=== PATIENT | female | born 1990 | race Caucasian/White ===

== ENCOUNTER 2016-07-03 05:21 | Emergency (ER) | payer OTHER ==
[~2016-07-03 05:21] MED LIST: ALBUTEROL0.09 MG/A1 INH; BACTRIM DS 8001 TAB PO; CIPROFLOXACIN250 M2 PO; DICLOFENAC SOD75 MG; FLU VACCINE 0.0.5 ML IM; FLUCONAZOLE150 MG; HYDROCHLOROTH12.5 M1 PO; IBUPROFEN800 MG PO; LEVSIN-SL0.125 MG SL; LEVSIN0.125 MG PO; MOTRIN800 MG PO; PEPCID20 M1 PO; PREDNISONE 20MG20 MG PO; REGLAN10 M1 PO; VITAFOL PO; ZOFRAN ODT4 MG PO; ZOFRAN4 M1 PO; ZOFRAN4 M1 SL; ZOFRAN4 MG PO
--- NOTE | 2016-07-03 05:50 | ED GI/GU/ABDOMINAL COMPLAINT ---
History of Present Illness General Chief Complaint: Abdominal Pain/Flank Pain Stated Complaint: "IM ABOUT 7WKS AND HAVE PAIN" Source: patient Exam Limitations: no limitations Vital Signs & Intake/Output Vital Signs & Intake/Output Vital Signs Date Time Temp Pulse Resp B/P Pulse O2 O2 Flow FiO2 Ox Delivery Rate 07/03 0933 98.3 106 20 131/63 99 Room Air 07/03 0731 98.1 94 18 110/57 99 Room Air 07/03 0539 97.2 109 18 143/72 98 Room Air Allergies Coded Allergies: azithromycin (Mild, FACE SWELLING 06/27/15) Penicillins (HIVES 06/17/15) Reconcile Medications Famotidine (Pepcid) 20 MG TABLET 1 TAB PO BID gastritis Hydrochlorothiazide 12.5 MG TAB 1 TAB PO DAILY HYPERTENSION Hyoscyamine Sulfate (Levsin-Sl) 0.125 MG TAB.SUBL 1-2 TAB SL Q4P PRN abdominal cramps Metoclopramide HCl (Reglan) 10 MG TABLET 1 TAB PO 4 TIMES/DAY nausea 30 minutes before meals and bedtime Pnv#26/Iron Poly/FA/Dha (Vitafol-One Capsule) 29 MG IRON-1 MG-200 MG CAPSULE 1 CAP PO DAILY (Reported) Triage Note: PER PT ?7 WEEKS ,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 NO CONSTIPATION, SL NAUSEA. Triage Nurses Notes Reviewed? yes ? y Is pt currently ? No Onset: Gradual Duration: hour(s): Timing: recent history Quality/Severity: cramping Location: suprapubic Radiation: no radiation Activities at Onset: none Prior Abdominal Problems: none Sexually Active: Yes Last Time You Were Sexual: less than 2 months ago Sexual Orientation: Heterosexual Associated Symptoms: lower abd cramps and slight vaginal bloody spotting. HPI: 25 yo woman presents with crampy lower abdominal pain for the past 1-2 days. She states that she recently had a positive serum test. She has not had ultrasound yet. Her last menstrual period was May 17. She states that she is concerned about a miscarriage. (WILFREDO WILDER,TABBY Reddy) Past History Travel History Traveled to [place] past 21 day No Medical History Any Pertinent Medical History? see below for history Neurological: NONE EENT: NONE Cardiovascular: NONE Respiratory: NONE Gastrointestinal: NONE Hepatic: NONE Renal: NONE Musculoskeletal: NONE Psychiatric: anxiety, ? 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 No (WILFREDO WILDER,TABBY Reddy) Review of Systems Review of Systems Constitutional: Reports: no symptoms. EENTM: Reports: no symptoms. Respiratory: Reports: no symptoms. Cardiovascular: Reports: no symptoms. GI: Reports: no symptoms. Genitourinary: Reports: no symptoms. Musculoskeletal: Reports: no symptoms. Skin: Reports: no symptoms. Neurological/Psychological: Reports: no symptoms. Hematologic/Endocrine: Reports: no symptoms. Immunologic/Allergic: Reports: no symptoms. All Other Systems: Reviewed and Negative (WILFREDO WILDER,TABBY Reddy) Physical Exam Physical Exam General Appearance: well developed/nourished, mild distress Head: atraumatic, normal appearance Eyes: Bilateral: normal appearance. Ears, Nose, Throat, Mouth: hearing grossly normal Neck: normal inspection, supple, full range of motion, normal alignment Respiratory: normal breath sounds, chest non-tender, no respiratory distress, quiet respiration, lungs clear Cardiovascular: regular rate/rhythm Gastrointestinal: normal bowel sounds, soft, non-tender, SUBJECTIVE TENDERNESS IN SUPRAPUBIC REGION, no rlq tenderness to palpation. Pelvic: normal external exam, normal speculum exam, cervix closed. no bleeding. Back: normal inspection, normal range of motion Extremities: normal range of motion, evidence of injury, pelvis stable Neurologic/Psych: no motor/sensory deficits, awake, alert, oriented x 3 Skin: intact, normal color, warm/dry Core Measures ACS in differential dx? No Severe Sepsis Present: No Septic Shock Present: No (WILFREDO WILDER,TABBY Reddy) Progress Differential Diagnosis: UTI/pyelo, ECTOPIC VS OTHER. Plan of Care: Orders Procedure Date/time Status TRICHOMONAS 07/03 600 Complete POTASSIUM HYDROXIDE (NANCY) 07/03 600 Complete GENITAL CULTURE 07/03 600 Active CHLAMYDIA-GC DNA PROBE 07/03 600 Active LIPASE 07/03 550 Complete HEPATIC FUNCTION PANEL 07/03 550 Complete HUMAN BETA HCG TITRE 07/03 550 Complete CBC WITHOUT DIFFERENTIAL 07/03 550 Complete BASIC METABOLIC PANEL 07/03 550 Complete AMYLASE 07/03 550 Complete TYPE & SCREEN (NOT X-MATCH) 07/03 550 Complete URINALYSIS 07/03 545 Complete Laboratory Tests 07/03/16 0615: Anion Gap 9, Estimated GFR > 60, BUN/Creatinine Ratio 17.1, Glucose 100 H, Calcium 9.2, Total Bilirubin 0.6, Direct Bilirubin 0.3, AST 45 H, ALT 62 H, Alkaline Phosphatase 71, Total Protein 6.6, Albumin 3.7, Amylase 42, Lipase 113, Beta HCG, Quant 2044.6, CBC w Diff NO MAN DIFF REQ, RBC 4.26, MCV 91.8, MCH 30.1 , RDW 11.8, MPV 8.3, Gran % 39.6 L, Lymphocytes % 51.6 H, Monocytes % 7.4, Eosinophils % 0.9, Basophils % 0.5, Absolute Granulocytes 2.8, Absolute Lymphocytes 3.6 H, Absolute Monocytes 0.5, Absolute Eosinophils 0.1, Absolute Basophils 0, PUBS MCHC 32.8 L 07/03/16 0548: Urine Color STRAW, Urine Clarity CLEAR, Urine pH 6.5, Ur Specific [place] <= 1.005, Urine Protein NEG, Urine Ketones NEG, Urine Nitrite NEG, Urine Bilirubin NEG, Urine Urobilinogen 0.2, Ur Leukocyte Esterase NEG, Ur Microscopic EXAM NOT REQUIRED, Urine Hemoglobin NEG, Urine Glucose NEG Microbiology 07/04 635 GENITAL: Trichomonas Preparation - COMP 07/04 635 GENITAL: Genital Culture - RECD 07/03 625 GENITAL: GC DNA Probe - RECD 07/03 625 GENITAL: Chlamydia DNA Probe (ADRY) - RECD 07/03 600 GENITAL: NANCY Preparation - COMP 07/03/2016 7:42:41 AM Patient signed out to be done by Dr. Sandoval pending ultrasound to evaluate for position. (JO WILDER,BRIEN) Diagnostic Imaging: Viewed by Me: Ultrasound. Discussed w/RAD: Ultrasound. Initial ED EKG: normal axis, normal intervals, normal p-waves, normal QRS complex, normal sinus rhythm Hand-Off Endorsed To: BRIEN OSORIO MD Endorsed Time: 0700 Pending: labs, ultrasound (WILFREDO WILDER,TABBY Reddy) Radiology Impression: PATIENT: SHEN QUINTERO PRESENT AGE: 25 PATIENT ACCOUNT NO: [id number] : 90 LOCATION: [facility] ORDERING PHYSICIAN: TABBY SANDOVAL MD SERVICE DATE: 07/03/16 EXAM TYPE: US - US TRANSVAG EXAMINATION: US TRANSVAGINAL CLINICAL INFORMATION: 7 weeks . Spotting. COMPARISON: Pelvic ultrasound 07/21/2015. TECHNIQUE: Real-time ultrasound was performed transvaginally. FINDINGS: The uterus is anteverted in position. Within the endometrial cavity is a well formed gestation sac measuring 0.55 cm in diameter corresponding to 5 weeks 1 day +/- 5 days. A yolk sac is suspected. pole and cardiac activity cannot be visualized at this age. The right ovary measures 1.9 x 2.3 x 2.2 cm, and the left ovary measures 2.8 x 2.6 x 2.9 cm. A small 2.0 cm corpus luteal cyst is seen in the left ovary. Normal arterial and venous waveforms are seen in the bilateral ovaries. Other significant findings: None. No evidence of free fluid. IMPRESSION: Single live intrauterine estimated to be 5 weeks 1 day +/- 5 days menstrual age. Estimated date of delivery is 03/04/2017. Based on the dating of the , it is too early to evaluate for presence of pole or heartbeat. No abnormal fluid is seen in endometrial cavity or cervix. The adnexa are unremarkable. DICTATED BY: NASH ELMORE MD DATE/TIME DICTATED:07/03/16907 CUSTOMER ORDERS CLERK:ALISIA DATE/TIME TRANSCRIBED:907 CONFIDENTIAL, DO NOT COPY WITHOUT APPROPRIATE AUTHORIZATION. < Electronically signed in Other Vendor System> SIGNED BY: NASH ELMORE MD 07/03/16926 (BRIEN OSORIO MD) Departure Departure Condition: Stable Referrals: BISI BRENNER MD (PCP/Family) (WILFREDO WILDER,TABBY Reddy) Departure Time of Disposition: 942 Disposition: HOME OR SELF CARE Clinical Impression Primary Impression: Secondary Impressions: Threatened Additional Instructions: FOLLOW UP WITH YOUR OBGYN DOCTORS. TAKE VITAMINS. NO TAMPONS OR VAGINAL INTERCOURSE UNTIL YOU ARE CLEARED TO DO SO BY YOUR DOCTOR. Departure Forms: Customer Survey General Discharge Information (BRIEN OSORIO MD)
[2016-07-03] MEDS ORDERED: VITAFOL-ONE CA1 EACH PO (06:15)
[2016-07-03 06:27] LABS: ABSOLUTE BASOPHIL COUNT 0 /CUMM (0.0-0.2); ABSOLUTE EOSINOPHIL COUNT 0.1 /CUMM (0.0-0.7); ABSOLUTE GRANULOCYTE CT 2.8 /CUMM (1.4-6.5); ABSOLUTE LYMPH COUNT 3.6 /CUMM (1.2-3.4); ABSOLUTE MONOCYTE COUNT 0.5 /CUMM (0.10-0.60); BASOPHIL % 0.5 % (0.0-2.0); EOSINOPHIL % 0.9 % (0-5); GRANULOCYTE % 39.6 % (42.2-75.2); HEMATOCRIT 39.1 % (37-47); MEAN CORPUSCULAR HGB 30.1 PG (27.0-31.0); MEAN CORPUSCULAR HGB CONC 32.8 G/DL (33.0-37.0); MEAN CORPUSCULAR VOLUME 91.8 FL (81.0-99.0); MEAN PLATELET VOLUME 8.3 FL (7.4-10.4); PLATELET COUNT 183 /CUMM (130-400); RBC DISTRIBUTION WIDTH 11.8 % (11.5-14.5); RED BLOOD CELL CT 4.26 /CUMM (4.20-5.40)
--- NOTE | 2016-07-03 09:27 | ULTRASOUND REPORT ---
EXAMINATION: US TRANSVAGINAL CLINICAL INFORMATION: 7 weeks . Spotting. COMPARISON: Pelvic ultrasound 07/21/2015. TECHNIQUE: Real-time ultrasound was performed transvaginally. FINDINGS: The uterus is anteverted in position. Within the endometrial cavity is a well formed gestation sac measuring 0.55 cm in diameter corresponding to 5 weeks 1 day +/- 5 days. A yolk sac is suspected. pole and cardiac activity cannot be visualized at this age. The right ovary measures 1.9 x 2.3 x 2.2 cm, and the left ovary measures 2.8 x 2.6 x 2.9 cm. A small 2.0 cm corpus luteal cyst is seen in the left ovary. Normal arterial and venous waveforms are seen in the bilateral ovaries. Other significant findings: None. No evidence of free fluid. IMPRESSION: Single live intrauterine estimated to be 5 weeks 1 day +/- 5 days menstrual age. Estimated date of delivery is 03/04/2017. Based on the dating of the , it is too early to evaluate for presence of pole or heartbeat. No abnormal fluid is seen in endometrial cavity or cervix. The adnexa are unremarkable.
[2016-07-03 09:33] VITALS: BP 131/63
== END 2016-07-03 09:54 ==
LOC: ERH 05:21
PROVIDERS: Pediatrics
DX: O20.0 Threatened abortion (principal)
CPT/HCPCS: 87070; 76817; 81003; 81025; 87491; 87591

== ENCOUNTER 2016-08-15 07:43 | Emergency (ER) | payer OTHER ==
[~2016-08-15] VITALS: Ht 162.6 cm; Wt 93.0 kg
[~2016-08-15 07:43] MED LIST changes: +VITAFOL-ONE CA1 EACH PO
--- NOTE | 2016-08-15 08:47 | ED GENERAL ADULT ---
See Addendum History of Present Illness General Chief Complaint: General Adult Stated Complaint: 11WKS PREG; C/O DIZZINESS Source: patient Exam Limitations: no limitations Vital Signs & Intake/Output Vital Signs & Intake/Output Vital Signs Date Time Temp Pulse Resp B/P B/P Pulse O2 O2 Flow FiO2 Mean Ox Delivery Rate 08/15 1136 97.3 81 18 108/57 99 Room Air 08/15 0959 Room Air 08/15 0747 97.5 85 20 119/82 97 Room Air Allergies Coded Allergies: azithromycin (Mild, FACE SWELLING 06/27/15) Penicillins (HIVES 06/17/15) Reconcile Medications Doxylamine/Pyridoxine HCl (Diclegis Dr 10-10 MG Tablet) 10 MG-10 MG TABLET.DR 2 TAB PO QPM nausea Famotidine (Pepcid) 20 MG TABLET 1 TAB PO BID gastritis Triage Note: PT STATES SHE IS 11 WEEKS AND IS VERY DIZZY, CAN'T KEEP ANYTHING DOWN INCLUDING WATER. . LAST OB APPT 1 WEEK AGO, EVERYTHING OK WITH . PT DENIES VAGINAL BLEEDING Triage Nurses Notes Reviewed? yes Onset: Abrupt Duration: day(s): Timing: recent history : Yes Patient currently breastfeeds: No HPI: 08/15/16 9 AM This is a 25-year-old female who presents to the emergency department complaining of dizziness, nausea, and epigastric abdominal discomfort. According to the patient she was in her usual state of health until the past 72 hours when she developed the above symptom complex. There is no vaginal bleeding. No fever, + vomiting. She is a 3 para 2. Her last menstrual period was May 17. She says she is unable to tolerate water. She says had multiple episodes of vomiting. She has a past medical history of asthma. She is on no medications. Past surgical history significant for tonsillectomy. Past History Travel History Traveled to [place] past 21 day No Medical History Any Pertinent Medical History? see below for history Neurological: NONE EENT: NONE Cardiovascular: NONE Respiratory: NONE Gastrointestinal: NONE Hepatic: NONE Renal: NONE Musculoskeletal: NONE Psychiatric: anxiety, ? 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 No Review of Systems Review of Systems Constitutional: Denies: fever. EENTM: Denies: visual changes. Respiratory: Denies: cough, short of breath. Cardiovascular: Denies: chest pain. GI: Reports: abdominal pain, nausea, vomiting. Denies: diarrhea. Genitourinary: Reports: no symptoms. Musculoskeletal: Reports: no symptoms. Skin: Denies: rash. Neurological/Psychological: Denies: headache. Hematologic/Endocrine: Reports: no symptoms. Physical Exam Physical Exam General Appearance: well developed/nourished, alert, awake, anxious Head: atraumatic, normal appearance Eyes: Bilateral: normal appearance, PERRL, EOMI (no nystagmus). Ears, Nose, Throat: normal pharynx, normal ENT inspection Neck: normal inspection, supple Respiratory: normal breath sounds, chest non-tender, no respiratory distress Cardiovascular: regular rate/rhythm Peripheral Pulses: 4+ radial (R), 4+ radial (L) Gastrointestinal: soft, non-tender, uterus at pelvic brim Back: normal range of motion Extremities: normal range of motion Neurologic/Psych: no motor/sensory deficits, awake, alert, oriented x 3 Skin: intact, normal color, warm/dry Core Measures ACS in differential dx? No CVA/TIA Diagnosis: No Severe Sepsis Present: No Septic Shock Present: No Progress Differential Diagnoses I considered the following diagnoses in my evaluation of the patient: [ Dehydration, starvation ketosis, gastroenteritis, cholecystitis, UTI, threatened ] Plan of Care: Orders Procedure Date/time Status CULTURE,URINE 08/15 857 Active URINALYSIS 08/15 08 Complete COMPREHENSIVE METABOLIC PANEL 08/15 08 Complete CBC WITHOUT DIFFERENTIAL 08/15 857 Complete ACETONE 08/15 08 Complete Laboratory Tests 08/15/16 0909: Anion Gap 11, Estimated GFR > 60, BUN/Creatinine Ratio 16.7, Glucose 81, Calcium 8.9, Total Bilirubin 0.7, AST 19, ALT 36, Alkaline Phosphatase 47, Total Protein 6.6, Albumin 3.6, Globulin 3.0, Albumin/Globulin Ratio 1.2, CBC w Diff NO MAN DIFF REQ, RBC 3.94 L, MCV 88.9, MCH 30.9, RDW 11.9, MPV 8.3, Gran % 65.6, Lymphocytes % 29.2, Monocytes % 4.7, Eosinophils % 0.2, Basophils % 0.3, Absolute Granulocytes 3.8, Absolute Lymphocytes 1.7, Absolute Monocytes 0.3, Absolute Eosinophils 0, Absolute Basophils 0, PUBS MCHC 34.7, Acetone Level NEGATIVE, Urinalysis MOD H, Urine Color YEL, Urine Clarity CLEAR, Urine pH 6.0, Ur Specific [place] >= 1.030, Urine Protein TRACE H, Urine Ketones TRACE H, Urine Nitrite NEG, Urine Bilirubin NEG@ICTO, Urine Urobilinogen 0.2, Ur Leukocyte Esterase NEG, Ur Microscopic SEDIMENT EXAMINED, Urine RBC RARE, Ur Epithelial Cells FEW, Urine Bacteria FEW H, Urine Mucus FEW, Urine Hemoglobin NEG, Urine Glucose NEG Microbiology 08/15 908 URINE ROUT: Urine Culture - RECD Initial ED EKG: none Departure Departure Disposition: STILL A PATIENT Condition: Stable Clinical Impression Primary Impression: Dizziness Referrals: ZOILA PACHECO MD (PCP/Family) Departure Forms: Customer Survey General Discharge Information Prescriptions: Current Visit Scripts Doxylamine/Pyridoxine HCl (Diclegis Dr 10-10 MG Tablet) 2 TAB PO QPM #48 TAB Comments 08/15/16 11:20 AM Labs unremarkable. Patient is comfortable and her symptoms improved with Phenergan and IV fluids. 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 Take Diclegis as needed. PATIENT: SHEN QUINTERO PRESENT AGE: 25 PATIENT ACCOUNT NO: [id number] : 90 LOCATION: [facility] ORDERING PHYSICIAN: YOBANY DREW DO SERVICE DATE: 08/15/16 EXAM TYPE: US - US- VIABILITY EXAMINATION: Ultrasound of , less than 14 weeks. INDICATION: 25 year-old the female, known to be , presented with pelvic pain.. TECHNIQUE: Real-time ultrasound of was performed transabdominally, using grayscale appearance and color Doppler flow. COMPARISON: Pelvic ultrasound done on 07/03/2016. FINDINGS: Multiple sonographic images of the pelvis demonstrates a single live intrauterine . heart rate of 165 beats per minute is detected. The cervix is closed, measures 4.40 cm. There is normal amniotic fluid volume. A pole and the gestational sac is visualized. heart rate is also detected . anatomy is difficult to evaluate secondary to small size of the fetus. movement is visualized. The crown-rump length is 5.3 cm ( 12 weeks 1 days). This corresponds to a mean age of 12 weeks and 1 days with estimated and expected date of delivery on 02/27/2017. Both ovaries are of normal size. The right measures 3.4 x 1.4 x 2.6 cm. The left measures 2.4 x 1.4 x 2.7 cm. Normal Arterial and venous blood flow is present bilaterally. There is no pelvic free fluid. IMPRESSION: 1. Single live intrauterine with mean age of 12 weeks and 1 day, with expected date of delivery 02/27/2017. Secondary to the early stage of , anatomy is difficult to evaluate and further measurements for a more comprehensive age estimate cannot be taken. Recommend returning for repeat ultrasound at approximately age 17-19 weeks. 2. No evidence of ectopic or failure. DICTATED BY: COMPA BUSTAMANTE MD DATE/TIME DICTATED:08/15/16946 MFG ASSOC:ALISIA DATE/TIME TRANSCRIBED:08/15/16946 Critical Care Note Critical Care Note Critical Care Time: non-applicable
[2016-08-15 09:23] LABS: ABSOLUTE BASOPHIL COUNT 0 /CUMM (0.0-0.2); ABSOLUTE EOSINOPHIL COUNT 0 /CUMM (0.0-0.7); ABSOLUTE GRANULOCYTE CT 3.8 /CUMM (1.4-6.5); ABSOLUTE LYMPH COUNT 1.7 /CUMM (1.2-3.4); ABSOLUTE MONOCYTE COUNT 0.3 /CUMM (0.10-0.60); BASOPHIL % 0.3 % (0.0-2.0); EOSINOPHIL % 0.2 % (0-5); HEMATOCRIT 35.1 % (37-47); MEAN CORPUSCULAR HGB 30.9 PG (27.0-31.0); MEAN CORPUSCULAR HGB CONC 34.7 G/DL (33.0-37.0); MEAN CORPUSCULAR VOLUME 88.9 FL (81.0-99.0); MEAN PLATELET VOLUME 8.3 FL (7.4-10.4); PLATELET COUNT 222 /CUMM (130-400); RBC DISTRIBUTION WIDTH 11.9 % (11.5-14.5); RED BLOOD CELL CT 3.94 /CUMM (4.20-5.40); WHITE BLOOD CELL COUNT 5.8 /CUMM (4.8-10.8)
[2016-08-15 09:27] LABS: GRANULOCYTE % 65.6 % (42.2-75.2)
--- NOTE | 2016-08-15 10:00 | ULTRASOUND REPORT ---
EXAMINATION: Ultrasound of , less than 14 weeks. INDICATION: 25 year-old the female, known to be , presented with pelvic pain.. TECHNIQUE: Real-time ultrasound of was performed transabdominally, using grayscale appearance and color Doppler flow. COMPARISON: Pelvic ultrasound done on 07/03/2016. FINDINGS: Multiple sonographic images of the pelvis demonstrates a single live intrauterine . heart rate of 165 beats per minute is detected. The cervix is closed, measures 4.40 cm. There is normal amniotic fluid volume. A pole and the gestational sac is visualized. heart rate is also detected . anatomy is difficult to evaluate secondary to small size of the fetus. movement is visualized. The crown-rump length is 5.3 cm ( 12 weeks 1 days). This corresponds to a mean age of 12 weeks and 1 days with estimated and expected date of delivery on 02/27/2017. Both ovaries are of normal size. The right measures 3.4 x 1.4 x 2.6 cm. The left measures 2.4 x 1.4 x 2.7 cm. Normal Arterial and venous blood flow is present bilaterally. There is no pelvic free fluid. IMPRESSION: 1. Single live intrauterine with mean age of 12 weeks and 1 day, with expected date of delivery 02/27/2017. Secondary to the early stage of , anatomy is difficult to evaluate and further measurements for a more comprehensive age estimate cannot be taken. Recommend returning for repeat ultrasound at approximately age 17-19 weeks. 2. No evidence of ectopic or failure.
[2016-08-15 11:36] VITALS: BP 108/57
[2016-08-15] MEDS ORDERED: DICLEGIS DR 101 EACH PO (11:41)
== END 2016-08-15 12:57 ==
LOC: ERH 07:43
PROVIDERS: Emergency Medicine
DX: O99.89 Other specified diseases and conditions complicating pregnancy, childbirth and the puerperium (principal); R42 Dizziness and giddiness; Z3A.12 12 weeks gestation of pregnancy; R11.2 Nausea with vomiting, unspecified; R10.13 Epigastric pain
CPT/HCPCS: 81001; 87086; 96374; J2550